=== PATIENT | male | born 1950 | race Caucasian/White ===

== ENCOUNTER 2016-11-05 18:35 | Observation (INO) | payer OTHER ==
[~2016-11-05] VITALS: Ht 167.6 cm; Wt 82.7 kg
[~2016-11-05 18:35] MED LIST: ALTOPREV40 MG PO; DILAUDID2 MG PO; HYDROCHLOROTHIA25 MG PO; LIPITOR20 MG PO; LOPRESSOR50 MG PO; LOVASTATIN40 MG PO; LYRICA75 MG PO; MAG-OXIDE400 MG PO; MAGNESIUM400 MG PO; METOPROLOL PO; METOPROLOL SUC100 MG PO; MORPHINE SULFAT15 MG PO; NAPROXEN500 MG PO; NORVASC10 MG PO; PERCOCET 5/31 TABLET PO; PREDNISONE20 MG PO; PROTONIX40 MG PO; RANITIDINE HCL150 MG PO; TOPROL XL100 MG PO; TRAZODONE HCL50 MG PO; ZOFRAN ODT4 MG PO
[2016-11-05 20:00] LABS: HEMATOCRIT 45.4 % (38.0-50.0); MCH 29.8 PG (29.0-34.0); MCHC 36.8 G/DL (30.0-36.0); MCV 81.1 FL (86-99); MEAN PLAT.VOLUME 8.5 uM^3 (9.0-12.4); PLATELET COUNT 314 K/uL (156-360); RBC DIS.WIDTH-CV 13.8 % (11.8-14.6); RBC DIS.WIDTH-SD 40.2 % (39-53); WHITE BLOOD COUNT 9.2 K/uL (4.1-10.2)
[2016-11-05 20:13] LABS: CHLORIDE 82 mEq/L (99-109); POTASSIUM 3.7 mEq/L (3.7-5.4); SODIUM 132 mEq/L (136-147)
[2016-11-05 20:14] LABS: GLUCOSE 168 mg/dL (70-99)
[2016-11-05 20:16] LABS: ANION GAP 26 MEQ/L (2-14)
[2016-11-05 20:18] LABS: GFR ESTIMATE (CALCULATED) 40 mL/min/; SERUM ETHYL ALCOHOL < 10 mg/dL
[2016-11-05 20:19] LABS: UREA NITROGEN (BUN) 26 mg/dL (9-23)
[2016-11-05 21:25] LABS: CHLORIDE 82 mEq/L (99-109); POTASSIUM 3.7 mEq/L (3.7-5.4); SODIUM 131 mEq/L (136-147)
[2016-11-05 21:27] LABS: GLUCOSE 138 mg/dL (70-99)
[2016-11-05 21:28] LABS: ANION GAP 23 MEQ/L (2-14)
[2016-11-05 21:29] LABS: TOTAL BILIRUBIN 2.4 mg/dL (0.0-1.0)
[2016-11-05 21:31] LABS: ALKALINE PHOSPHATASE 109 IU/L (3-129); GFR ESTIMATE (CALCULATED) 46 mL/min/
[2016-11-05 21:32] LABS: UREA NITROGEN (BUN) 27 mg/dL (9-23)
[2016-11-05 21:34] LABS: LIPASE 81 U/L (1.0-51.0)
[2016-11-05] MEDS ORDERED: MAGNESIUM250 MG PO (23:28)
[2016-11-05] MEDS ORDERED: PROTONIX20 MG PO (23:31)
[2016-11-05 23:33] LABS: ADD MIUA? NO; BILIRUBIN NEGATIVE; BLOOD NEGATIVE; COLOR YELLOW ((YELLOW)); GLUCOSE (STRIP) NEGATIVE; KETONES NEGATIVE; LEUKOCYTES NEGATIVE; NITRITE NEGATIVE; PROTEIN (STRIP) 30; SPECIFIC GRAVITY 1.018 (1.000-1.030); UCUL ADDED? NO; UROBILINOGEN 0.2 MG/DL (0.2-1.0)
[2016-11-05 23:51] VITALS: BP 146/77
[2016-11-05 23:53] LABS: AMPHETAMINE NEGATIVE (500 ng/mL); BARBITURATES NEGATIVE (200 ng/mL); BENZODIAZEPINES NEGATIVE (150 ng/mL); COCAINE NEGATIVE (150 ng/mL); INTERNAL CONTROLS VALID? YES; METHADONE NEGATIVE (200 ng/mL); METHAMPHETAMINE NEGATIVE (500 ng/mL); OPIATES (MORPHINE) NEGATIVE (100 ng/mL); OXYCODONE NEGATIVE (100 ng/mL); PHENCYCLIDINE NEGATIVE (25 ng/mL); PROPOXYPHENE NEGATIVE (300 ng/mL); THC CANNABINOIDS NEGATIVE (50 ng/mL); TRICYCLIC ANTIDEPRESSANTS NEGATIVE (300 ng/mL)
[2016-11-06 05:54] VITALS: BP 132/78
[2016-11-06 08:11] VITALS: BP 143/83
[2016-11-06 12:32] VITALS: BP 136/73
[2016-11-06] MEDS ORDERED: ATIVAN0.5 MG PO (14:26)
== END 2016-11-06 14:55 | disposition home or self-care (01) ==
LOC: EME 18:35 → EDOF 22:43 → 5WEST 23:38
PROVIDERS: Emergency Medicine; Physician Assistant
DX: F10.239 Alcohol dependence with withdrawal, unspecified (principal); R11.2 Nausea with vomiting, unspecified; R19.7 Diarrhea, unspecified; R51 Headache; R10.9 Unspecified abdominal pain; I10 Essential (primary) hypertension; K21.9 Gastro-esophageal reflux disease without esophagitis; E78.5 Hyperlipidemia, unspecified; E87.2 Acidosis; E87.1 Hypo-osmolality and hyponatremia; Z79.899 Other long term (current) drug therapy
CPT/HCPCS: 70450; 71010; 74176; 80048; 80053; 81003; 83605; 83690; 85027; 93005; 99281; 99285; G0378; G0480; J1650; J2765; J3411; J3475; J7030; S0028